=== PATIENT | male | born 2000 | race Caucasian/White ===

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

== ENCOUNTER 2020-02-05 03:08 | Emergency (ER) | payer OTHER ==
[2020-02-05 03:16] VITALS: BP 116/78; PULSE 85; TEMP 98.8; BMI 33.2
[2020-02-05] MEDS ORDERED: predniSONE 20 MG TABLET (UD) PO ONE (03:28)
[2020-02-05] MEDS ORDERED: diphenhydrAMINE HCL 50 MG CAPSULE PO ONE (03:28)
--- NOTE | 2020-02-05 03:29 | PDOC ---
History of Present Illness - General Chief Complaint: Hives Stated Complaint: HIVES Time Seen by Provider: 02/05/20 03:24 History Source: Patient Exam Limitations: No Limitations - History of Present Illness Initial Comments: 02/05/20 03:24 This is a 19-year-old male who comes in complaining of hives x1 day. Patient is on an antibiotic many cyclin that he has been taking for approximately 2 weeks. Otherwise patient denies any new lotions creams or ointments or medications. Patient does not been taking anything for the hives. Allergies: as per nursing notes Past Medical History: none Social history: Lives with family. No smoking. No alcohol. No illicit drugs. Surgical history: None General: No fevers or chills, no weakness, no weight loss HEENT: No change in vision. No sore throat,. No ear pain CardioVascular: no chest discomfort. No shortness of breath Respiratory:No cough, or wheezing. Gastrointestinal: no nausea, vomiting, diarrhea or constipation, No rectal bleeding Genitourinary: No dysuria, hematuria, or frequency Musculoskeletal: No joint or muscle pain or swelling Neurologic: No headache, vertigo, dizziness or loss of consciousness Psychiatric: nor depression Skin: + Hives/rashes no easy bruising Endocrine: no increased thirst or abnormal weight change Allergic: no skin or latex allergy All other systems reviewed and normal GENERAL: The patient is awake, alert, and fully oriented, in no acute distress. HEENT:Head is normal with no signs of trauma. Eyes: Pupils equal, round and reactive to light, Ears, and Throat are normal. Neck is supple. No Lymphadenopathy. EXTREMITIES:atraumatic, Normal range of motion, no edema. NEUROLOGICAL: Normal speech, normal gait. PSYCH: Normal mood, normal affect. SKIN: Warm, Dry, normal turgor, hives of bilateral hands and arms Assessment and plan: This is a 19-year-old male with hives of his hands and arms who is on minocycline. Patient was advised to stop the antibiotic follow-up with his doctor and I started him on some prednisone and gave him Medrol Dosepak. Past History - Medical History Allergies/Adverse Reactions: Allergies Allergy/AdvReac Type Severity Reaction Status Date / Time No Known Allergies Allergy Verified 06/19/18 18:41 Home Medications: Ambulatory Orders Methylprednisolone [Medrol Dose Luis Alfredo] 4 mg PO ASDIR #21 tablet 02/05/20 Minocycline HCl 100 mg PO DAILY 02/05/20 COPD: No CHF: No Other medical history: ACNE - Immunization History Immunization Up to Date: Yes - Psycho-Social/Smoking History Smoking History: Never smoked Have you smoked in the past 12 months: No *Physical Exam - Vital Signs Last Vital Signs Temp Pulse Resp BP Pulse Ox 98.8 F 85 16 116/78 99 02/05/20 03:02/05/20 03:02/05/20 03:02/05/20 03:02/05/20 03:11 Discharge - Discharge Information Problems reviewed: Yes Clinical Impression/Diagnosis: Hives Condition: Stable Disposition: HOME - Admission No - Follow up/Referral - Patient Discharge Instructions Additional Instructions: Stop the minocycline. Get the prescription filled that I sent to the pharmacy for a Medrol Dosepak and take as per the pack. In addition to the Medrol Dosepak you can also take Benadryl 1 tablet as often as every 4 hours if needed. Return to the emergency department immediately with ANY new, persistent or worsening symptoms. Continue any medications as previously prescribed by your physician. You should follow up with your primary doctor as soon as possible regarding today's emergency department visit. . Please make sure your doctor reviews the results of your emergency evaluation. Thank you for coming to the Emergency Department today for your care. It was a pleasure to see you today. Please note that your evaluation is INCOMPLETE until you follow-up with your doctor. - Post Discharge Activity
[2020-02-05] MEDS ORDERED: predniSONE 20 MG TABLET (UD) ONE (03:30)
[2020-02-05] MEDS ORDERED: diphenhydrAMINE HCL 25 MG CAPSULE (FP) PO ONE (03:31)
== END 2020-02-05 03:35 | disposition home or self-care (01) ==
LOC: FER 03:08
DX: L50.9 Urticaria, unspecified (principal)
CPT/HCPCS: 99283-25